=== PATIENT | male | born 1975 | race African-American/Black ===

== ENCOUNTER 2019-05-12 22:47 | Emergency (ER) | payer SELFPAY ==
[~2019-05-12] VITALS: Ht 177.8 cm; Wt 86.4 kg
[2019-05-12 22:49] VITALS: BP 131/89
== END 2019-05-13 01:06 | disposition home or self-care (01) ==
LOC: EMS 22:47
DX: T78.49XA Other allergy, initial encounter (principal); H00.015 Hordeolum externum left lower eyelid; F17.210 Nicotine dependence, cigarettes, uncomplicated; F12.90 Cannabis use, unspecified, uncomplicated; X58.XXXA Exposure to other specified factors, initial encounter